=== PATIENT | male | born 1940 | race Caucasian/White ===

== ENCOUNTER 2016-06-03 13:50 | Emergency (ER) | payer OTHER ==
[~2016-06-03] VITALS: Ht 188 cm; Wt 120.4 kg
[2016-06-03 17:49] VITALS: BP 150/78
== END 2016-06-03 17:49 | disposition home or self-care (01) ==
LOC: EME 13:50
PROC: 0HQ1XZZ Repair Face Skin, External Approach (ICD-10-PCS; principal; 2016-06-03)
DX: S01.111A Laceration without foreign body of right eyelid and periocular area, initial encounter (principal); S09.8XXA Other specified injuries of head, initial encounter; W18.09XA Striking against other object with subsequent fall, initial encounter; Y92.481 Parking lot as the place of occurrence of the external cause
CPT/HCPCS: 99281; 99284